=== PATIENT | male | born 1960 ===

== ENCOUNTER → 2016-11-22 | Outpatient (CLI) | payer OTHER ==
--- NOTE | 2016-11-22 15:34 | PE ---
[facility] Interpretive Statements Severe restriction consistent with COPD and with marked improvement post bronchodilator. Electronically Signed On 11-23-16 07:51:36 MDT by Stephon Wright MD [email or web address]
--- NOTE | 2016-11-22 19:53 | DI ---
PA /LATERAL CHEST X-RAY, 11/22/2016 1:52 PM : Clinical History: Asthma. Previous Exam: None at this facility. There is no acute soft tissue or bony abnormality. Heart size is normal. Lungs are clear. Mediastinal structures are normal. There are no pulmonary nodules. Reading: Normal chest x-ray.
== END ==
LOC: RT 13:40
DX: J45.909 Unspecified asthma, uncomplicated (principal); J44.9 Chronic obstructive pulmonary disease, unspecified
CPT/HCPCS: 71020; 94060